=== PATIENT | female | born 1985 ===

== ENCOUNTER 2018-04-17 01:51 | Emergency (ER) | payer BC ==
--- NOTE | 2018-04-17 02:38 | OBHP ---
Datetime: 04/17/2018 02:33 IP Adm Impression: , intrauterine ; No Active Labor IP Chief Complaint Other: stomach pains, diarrhea IP Admit Plan: Discharge home Admit Comment, IP Provider: A/P: at 33+2 wks with gastroenteritis - primagravida - no active labor - GI - PO hydration tonight - TUMS for reflux - BRAT diet in AM - labor precautions given - d/c home FHR - Baseline A Provider: 130 Contraction Comments Provider: quiet EGA AdmitDate IP: 33.2 Vital Signs Provider: Reviewed; Within Normal Limits IP Chief Complaint: Maternal discomfort NICHD Variability Prov Fetus A: Moderate 6-25bpm NICHD Accel Fetus A IP Provider: [id number] NICHD Decel Fetus A IP Provider: None Dilatation, Provider: ft Effacement, Provider: 50 Station, Provider: -3
[2018-04-17 06:54] VITALS: BP 122/84; PULSE 83; RESP 20; TEMP 97
== END 2018-04-17 02:42 | disposition home or self-care (01) ==
LOC: C.EROB 01:51
DX: O99.613 Diseases of the digestive system complicating pregnancy, third trimester (principal); K52.9 Noninfective gastroenteritis and colitis, unspecified; Z3A.33 33 weeks gestation of pregnancy